=== PATIENT | female | born 1990 | race Two or more races ===

== ENCOUNTER 2024-04-28 14:00 | Outpatient (RCR) | payer MEDICAID, SELFPAY ==
--- NOTE | 2024-04-15 13:37 | PTNOTE_ITS ---
PT OP Initial Eval Patient Information Outpatient Physical Therapy Treatment Date: 04/15/24 Visit Reasons: Low back/Pain in left leg Medical Diagnosis: Back Pain; Left LE Pain Treatment Dx #1: Back Pain Start of Care: 04/15/24 Smoking Status Smoking Status: Never smoker Initial Assessment Subjective: Pt is a 33 y/o female reports of back and left LE pain ~ 3 years ago. According to patient she has a few slipped disc. Pt has limitation with sitting, standing, chores, lifting, self care, cooking, cleaning, and performing recreational activities. Objective: L/S AROM: all motions are WFL Hip PROM: all motions are WFL Hip MMTs: grossly 3/5 Special Test (+) SLR Assessment: Pt demonstrate back pain with mobility deficits leading to difficulty with ADLs. Pt will attempt physical therapy if pain persist Pt will be refer back to provider for further consultation. Short Term and Technical System Analyst Goals 1) Increase L/S AROM WFL in 6 wks to be able to perform chores 2) Decrease back pain to 2/10 in 6 wks to be able to sit and stand more than 30 mins 3) Increase core strength WFL in 6 wks to be able to perform recreational activities 4) Increase hip MMTs grossly to 4-/5 in 6 wks to be able to walk more than 30 mins 5) Indep with HEP Treatment Plan 1) Manual Therapy 2) Therapeutic Activities 3) Therapeutic Exercises 4) Modalities (ice, heat, traction) Frequency and Duration: 2 x wk for 6 wks Certification Dates: 04/15/24 to 07/16/24 Procedure Charges OP PT Eval Mod Complex 30 minutes: Yes
--- NOTE | 2024-04-18 09:04 | PT.ODAYNRPT ---
PT Outpatient Daily Note OP Daily Note Outpatient Physical Therapy Treatment Date: 04/18/24 Visit Reasons: Low back/Pain in left leg Subjective: Pt's back is about the same. Objective: Please see flow chart for list of ther ex performed Assessment: tolerate exercises with minimal pain Plan: Continue with PT Length of Time (minutes) of Treatment: 30 Minutes Procedure Charges Therapeutic Exercise 30 minutes: Yes
--- NOTE | 2024-04-25 09:05 | PT.ODAYNRPT ---
PT Outpatient Daily Note OP Daily Note Outpatient Physical Therapy Treatment Date: 04/25/24 Visit Reasons: Low back/Pain in left leg Subjective: Pt reports LBP is 8/10 today, felt increase pain and soreness post last PT session. Objective: Please see flow sheet for ther ex list. Assessment: Pt presents in clinic with c/o 8/10 pain, regressed interventions to accommodate pain. Plan: Assess response to treatment. Length of Time (minutes) of Treatment: 30 Minutes Procedure Charges Therapeutic Exercise 30 minutes: Yes
--- NOTE | 2024-04-28 14:49 | PT.ODAYNRPT ---
PT Outpatient Daily Note OP Daily Note Outpatient Physical Therapy Treatment Date: 04/28/24 Visit Reasons: Low back/Pain in left leg Subjective: Pt's back feels about the same. Pt mention she has her MRI results in the car. Objective: Please see flow chart for list of ther ex performed Assessment: attempted to review MRI results with patient, however, unable due to patient's inability to locate the result. Pre-heat helped patient tolerate supine exercises Plan: Continue with PT Length of Time (minutes) of Treatment: 30 Minutes Procedure Charges Therapeutic Exercise 30 minutes: Yes
== END 2024-05-01 23:59 | disposition home or self-care (01) ==
LOC: CPTX 14:00
PROVIDERS: PCP Nurse Practitioner Family; Referring Provider Nurse Practitioner Family; Visit Provider Nurse Practitioner Family
DX: M54.9 Dorsalgia, unspecified (principal); M79.605 Pain in left leg
CPT/HCPCS: 97110; 97162

== ENCOUNTER 2024-05-23 09:00 | Outpatient (RCR) | payer OTHER, SELFPAY ==
--- NOTE | 2024-05-05 10:26 | PT.ODAYNRPT ---
PT Outpatient Daily Note OP Daily Note Outpatient Physical Therapy Treatment Date: 05/05/24 Visit Reasons: Low back pain/hip pain Subjective: Pt still unable to locate MRI results. Pt will have facility fax to PT clinic. Pt's back about the same. Objective: Please see flow chart for list of ther ex performed Assessment: added light core strengthening exercises with good tolerance Plan: Continue with PT Length of Time (minutes) of Treatment: 30 Minutes Procedure Charges Therapeutic Exercise 30 minutes: Yes
--- NOTE | 2024-05-09 10:26 | PT.ODAYNRPT ---
PT Outpatient Daily Note OP Daily Note Outpatient Physical Therapy Treatment Date: 05/09/24 Visit Reasons: Low back pain/hip pain Subjective: Pt still cant fing her MRI results. Pt mention physical therapy is not helping and will talk with PCP about continuation. Objective: Please see flow chart for list of ther ex performed Assessment: patient encourage to return back to PCP for further consultation prior to stopping physical therapy since intervention is not helping pain. Pt gave verbal consent and agreement. Plan: Continue with PT Length of Time (minutes) of Treatment: 30 Minutes Procedure Charges Therapeutic Exercise 30 minutes: Yes
--- NOTE | 2024-05-16 09:16 | PT.ODAYNRPT ---
PT Outpatient Daily Note OP Daily Note Outpatient Physical Therapy Treatment Date: 05/16/24 Visit Reasons: Low back pain/hip pain Subjective: Pt reports today is a good day, back pain is mild. Pt shared that she has good and bad days, receives injections every 6 months for pain management. Objective: Please see flow sheet for ther ex list. Assessment: Pt ambulates with decrease arm swing. Pt completed interventions with no pain. Plan: Continue with POC. Length of Time (minutes) of Treatment: 30 Minutes Procedure Charges Therapeutic Exercise 30 minutes: Yes
--- NOTE | 2024-05-23 09:34 | PT.ODAYNRPT ---
PT Outpatient Daily Note OP Daily Note Outpatient Physical Therapy Treatment Date: 05/23/24 Visit Reasons: Low back pain/hip pain Subjective: Pt's back is the same and continues to hurt. Pt has a follow up appt with doctor today but does not want to be release from physical therapy despite therapy not helping. Objective: Please see floe chart for list of ther ex performed Assessment: no change in pain; heat helped patient tolerate supine exercises Plan: Continue with PT Length of Time (minutes) of Treatment: 30 Minutes Procedure Charges Therapeutic Exercise 30 minutes: Yes
== END 2024-05-31 23:59 | disposition home or self-care (01) ==
LOC: CPTX 09:00
PROVIDERS: PCP Nurse Practitioner Family; Referring Provider Nurse Practitioner Family; Visit Provider Nurse Practitioner Family
DX: M54.9 Dorsalgia, unspecified (principal); M79.605 Pain in left leg
CPT/HCPCS: 97110

== ENCOUNTER 2024-06-09 09:10 | Outpatient (RCR) | payer MEDICAID, SELFPAY ==
--- NOTE | 2024-06-09 09:31 | PT.ODAYNRPT ---
PT Outpatient Daily Note OP Daily Note Outpatient Physical Therapy Treatment Date: 06/09/24 Visit Reasons: low back pain/hip pain Subjective: Pt received shots in her back last week which seems to help the pain. Pt is doing okay today. Pt wants to finish all of her physical therapy session for the back. Objective: Please see flow chart for list of ther ex performed Assessment: added more standing exercises with good tolerance. Decrease left LE pain reported post PT session Plan: Continue with PT Length of Time (minutes) of Treatment: 30 Minutes Procedure Charges Therapeutic Exercise 30 minutes: Yes
== END 2024-07-01 23:59 | disposition home or self-care (01) ==
LOC: CPTX 09:10
PROVIDERS: PCP Nurse Practitioner Family; Referring Provider Nurse Practitioner Family; Visit Provider Nurse Practitioner Family
DX: M54.50 Low back pain, unspecified (principal); M79.605 Pain in left leg
CPT/HCPCS: 97110

== ENCOUNTER → 2024-08-20 | Outpatient (CLI) | payer MEDICAID, SELFPAY ==
--- NOTE | 2024-08-20 10:20 | XR_ITS ---
Examination:Right hip AP, lateral, AP pelvis 3 views Technique: Hip AP lateral, AP pelvis, 3 views Exam date and time:August 20, 2024 1044 hours. Indications: Patient onset right hip pain 3 weeks ago FINDINGS: Mild osteopenia Mild narrowing hip joints No right or left hip fracture or hip dislocation Greater trochanteric bursitis left hip IMPRESSION: Mild narrowing hip joints
== END | disposition home or self-care (01) ==
LOC: CDIM 10:00
PROVIDERS: PCP Nurse Practitioner Family; Referring Provider Nurse Practitioner Family; Visit Provider Nurse Practitioner Family
DX: M25.851 Other specified joint disorders, right hip (principal)
CPT/HCPCS: 73502

== ENCOUNTER → 2024-09-11 | Outpatient (CLI) | payer MEDICAID, SELFPAY ==
--- NOTE | 2024-09-11 08:22 | XR_ITS ---
Examination:Left hip AP, lateral, AP pelvis 3 views Technique: Hip AP lateral, AP pelvis, 3 views Exam date and time:September 11, 2024, 0730 hrs. Indications: Left hip pain beginning one month ago Findings: Mild narrowing hip joints. Greater trochanteric bursitis left hip No hip fracture or dislocation Impression: Mild narrowing hip joints Greater trochanteric bursitis left hip.
== END | disposition home or self-care (01) ==
PROVIDERS: PCP Nurse Practitioner Family; Referring Provider Nurse Practitioner Family; Visit Provider Nurse Practitioner Family
DX: M70.62 Trochanteric bursitis, left hip (principal); M25.852 Other specified joint disorders, left hip
CPT/HCPCS: 73502

== ENCOUNTER 2024-10-18 12:07 | Emergency (ER) | payer MEDICAID, SELFPAY ==
--- NOTE | 2024-10-18 12:15 | XR_ITS ---
Examination: Abdomen AP single view Technique: AP portable supine abdomen, single view Exam date and time: October 18, 2024 1338 hrs. Indications: Gastric surgery 2 weeks ago with nausea and vomiting today Findings: Nonobstructive bowel gas pattern No free air Surgical clips upper right abdomen Impression: Nonobstructive bowel gas pattern
[2024-10-18 12:16] VITALS: BP 110/83; PULSE 97; RESP 18; TEMP 37; O2SAT 98; BMI 35.5
--- NOTE | 2024-10-18 12:16 | XR_ITS ---
Examination: PA chest single view Technique: Upright PA chest single view Exam date and time: October 18, 2024 at 1346 hrs. Indications: Vomiting today. Findings: Normal heart size No aspiration pneumonia. Osseous structures are intact Impression: No aspiration pneumonia
--- NOTE | 2024-10-18 12:19 | EDNOTE_ITS ---
ED General RME/HPI General Chief complaint: Nausea/Vomiting/Diarrhea Stated complaint: N/V Time Seen by Provider: 10/18/24 12:10 Arrival date/time: 10/18/24 12:07 RME / HPI RME / HPI narrative: 34-year-old female patient with a recent history of bariatric surgery, gastric sleeve, 2 weeks ago, came in for evaluation regarding nausea and vomiting. Patient has been having nausea and vomiting, for the last few days, cannot take anything down, associated with loose stools. Patient also complained of epigastric pain, and left subcostal pain. Describes dull ache, severity mild. Denies any fever denies any other complaints no medications taken prior to arrival. Related Data Previous Rx's ?Medication ?Instructions ?Recorded metoclopramide HCl 10 mg tablet 10 mg PO .BID prn PRN nausea and 10/18/24 (Reglan) vomiting #20 tabs pantoprazole 40 mg tablet,delayed 40 mg PO QDAY #20 ta bs 10/18/24 release (Protonix) Allergies Allergy/AdvReac Type Severity Reaction Status Date / Time peanut Allergy Verified 10/18/24 13:22 Review of Systems Review of Systems Narrative Review of Systems: Review of system reviewed and within normal limits except mentioned in HPI ED Exam Narrative Physical exam: VITAL SIGNS: Reviewed. GENERAL APPEARANCE: Alert and interactive, follows commands, no acute distress, HEAD AND FACE: Non-traumatic. ENT: PERRL, pink conjunctivitis, eyelid no trauma, Mucous membrane moist. NECK: Supple, nontender, no nuchal rigidity. CHEST: No tenderness, no crepitus, no paradoxical movement, no retractions. LUNGS: Clear, well ventilated, symmetric, no rales, no wheezing, no ronchi, no stridor, good breath sounds bilaterally. HEART: Regular rate, regular rhythm, no murmur, no gallops. ABDOMEN: Soft, positive bowel sounds, nondistended, no guarding, no rebound, no masses, status post multiple laparoscopic surgeries she site, intact, no drainage no redness, slight tenderness on the epigastric area, tenderness slight, on the left subcostal area RECTAL: Deferred. GENITAL: Deferred. NEUROLOGICAL: Gross motor function intact sensory function intact, Appropriate for age. MUSCULOSKELETAL: low back nontender, full range of motion. EXTREMITIES: Nontender, full range of motion. SKIN: Color pink, dry, no rash, no lacerations, no abrasions, no contusions. LYMPHATICS: Deferred. Course Quality Measures none Orders Category Date Time Status KUB [XR abdomen 1V] Stat Exams 10/18/24 12:15 Completed XR chest 1V Stat Exams 10/18/24 12:16 Completed CBC Stat Lab 10/18/24 12:40 Completed Comprehensive Metabolic Panel Stat Lab 10/18/24 12:40 Completed Lipase Stat Lab 10/18/24 12:40 Completed Partial Thromboplastin Time Stat Lab 10/18/24 12:40 Completed Urinalysis, C/S if Indicated Stat Lab 10/18/24 12:35 Completed Famotidine Inj [Pepcid Inj] Med 10/18/24 12:15 Discontinued 20 mg IVP X1 ONE KCL 10% Liq UDC 15 ML Med 10/18/24 16:38 Once 40 meq GT X1 ONE Metoclopramide Inj [Reglan Inj] Med 10/18/24 13:33 Discontinued 10 mg IVP X1 ONE Ondansetron Inj [Zofran Inj] Med 10/18/24 12:15 Discontinued 4 mg IV X1 ONE Ringers Lactated 1000 ml [Lactated Ringers] 1,000 ml Med 10/18/24 12:18 Discontinued IV 999 mls/hr Vital Signs Vital signs: Vital Signs Temperature 98.6 F 10/18/24 12:16 Pulse Rate 97 10/18/24 12:16 Respiratory Rate 18 10/18/24 12:16 Blood Pressure 110/83 10/18/24 12:16 Pulse Oximetry (%) 98 10/18/24 12:16 Oxygen Delivery Method Room Air 10/18/24 12:16 Discharge Plan Plan Patient Disposition: HOME (Self Care) Disposition Comment: Stable Prescriptions/Referrals Prescriptions/Med Rec: New metoclopramide HCl [Reglan] 10 mg tablet 10 mg PO .BID prn PRN (Reason: nausea and vomiting) Qty: 20 0RF pantoprazole [Protonix] 40 mg tablet,delayed release (DR/EC) 40 mg PO QDAY Qty: 20 0RF Referrals: Celestina Jarrett, [employer] [Primary Care Provider] - In 1 week Problem List Clinical Impression: Dehydration, Nausea & vomiting Patient/Caregiver Discharge Instructions Discharge Activity: activity as tolerated Education Materials: ED Dehydration (Adult) Additional Instructions: Thank you for the opportunity for serving you today. You are stable for dischar ged . You are advised to: Follow-up with your PCP in 1 to 2 days Return to ED for worsening of symptoms Increase oral fluids Print Language: Cam[place]onian Stand Alone Forms: Nancy Award Info., Patient Portal Info Letter MDM Patient Acuity Narrative: 34-year-old female patient with a recent history of bariatric surgery, gastric sleeve, 2 weeks ago, came in for evaluation regarding nausea and vomiting. Patient has been having nausea and vomiting, for the last few days, cannot take anything down, associated with loose stools. Patient also complained of epigastric pain, and left subcostal pain. Describes dull ache, severity mild. Denies any fever denies any other complaints no medications taken prior to arrival. Patient's workup is significant for slight leukocytosis of 14.0, urinalysis contaminated. Chest x-ray came back unremarkable x-ray of the abdomen came back unremarkable. Patient received IV fluid hydration, Pepcid, Reglan and Zofran with significant problems symptoms. Patient stable for discharge home. Medication Administration(s) Medication Administration History Potassium Chloride (Potassium Chloride 10% 20 Meq/15 Ml Udc) 40 meq GT X1 ONE Stop: 10/18/24 16:39 Discontinued Medications Famotidine (Famotidine Inj 10 Mg/Ml Vial 2 Ml) 20 mg IVP X1 ONE Stop: 10/18/24 12:16 Last Admin: 10/18/24 13:38 Dose: 20 mg Documented By: CHACHA Lactated Ringer's (Lactated Ringers) 1,000 mls @ 999 mls/hr IV .Q1H1M ONE Stop: 10/18/24 13:18 Last Admin: 10/18/24 13:31 Dose: 999 mls/hr Documented By: Metoclopramide HCl (Metoclopramide Inj 5 Mg/Ml Vial 2 Ml) 10 mg IVP X1 ONE; Protocol Stop: 10/18/24 13:34 Last Admin: 10/18/24 13:38 Dose: 10 mg Documented By: CHACHA Ondansetron HCl (Ondansetron Inj 2 Mg/Ml Inj 2 Ml) 4 mg IV X1 ONE; Protocol Stop: 10/18/24 12:16 Last Admin: 10/18/24 13:33 Dose: Not Given Documented By: Non-Admin Reason: Other, see note Comments: not given, patient had with EMS and at home. Reglan ordered Diagnosis Differential Diagnosis ED Complaint MDM: Dehydration, nausea vomiting, status post recent gastric sleeve surgery Diagnoses ruled out: Dehydration, nausea vomiting, status post gastric sleeve surgery
[2024-10-18 12:45] LABS: Collection Type, Urine Clean Catch
[2024-10-18 12:49] LABS: Basophils # (Auto) 0.1 Thou/mm3 (0.0-0.2); Basophils % (Auto) 1 % (0-2.5); Eosinophils # (Auto) 0.3 Thou/mm3 (0.0-0.5); Eosinophils % (Auto) 2 % (0-10); Hemoglobin 14.6 g/dL (12.0-16.0); Immature Granulocytes % (Auto) 0 % (0-0); Immature Granulocytes Auto 0.04 Thou/mm3 (0.00-0.00); Lymphocytes # (Auto) 2.6 Thou/mm3 (1.0-4.8); Lymphocytes % (Auto) 19 % (10-50); Mean Corpuscular HGB Conc 32.4 g/dl (31.0-37.0); Mean Corpuscular Hemoglobin 25.3 pg (25.0-35.0); Mean Corpuscular Volume 78 fL (80-100); Monocytes # (Auto) 1.2 Thou/mm3 (0.0-0.8); Monocytes % (Auto) 8 % (0-12); Neutrophils # (Auto) 9.8 Thou/mm3 (1.8-7.7); Neutrophils % (Auto) 70 % (37-80); Nucleated Red Blood Cell % 0 /100 WBC (0); Platelet Count 355 Thou/mm3 (140-440); RDW Standard Deviation 41.2 fL (36.4-46.3); Red Blood Count 5.77 Miln/mm3 (4.00-5.20)
[2024-10-18 12:58] LABS: Bacteria,Urine 1+; Bilirubin,Urine 1+ (Negative); Blood,Urine 3+ (Negative); Clarity,Urine Turbid (Clear/Hazy); Color,Urine Drk-Yellow (Lt Yel-Yel); Culture Indicated,Urine Contaminated; Glucose, Urine Negative (Negative); Ketones,Urine 4+ (Negative); Leukocyte Esterase,Urine Positive (Negative); Nitrite,Urine Negative (Negative); PH,Urine 6.5 (5.0-7.0); Protein,Urine 3+ (Neg - Trace); RBC,Urine 6 /hpf (0-3); Specific Gravity,Urine 1.033 (1.001-1.035); Squamous Epithelial Cell,Urine 23 /hpf (0-5); WBC,Urine 24 /hpf (0-5)
[2024-10-18 13:02] LABS: Partial Thromboplastin Time 28.9 Seconds (22.0-36.0)
[2024-10-18 13:08] LABS: Alanine Aminotransferase 43 U/L (10-49); Albumin, Serum 4.6 gm/dL (3.5-5.0); Albumin/Globulin Ratio 1.4 (1.2-2.2); Alkaline Phosphatase 63 U/L (46-116); Anion Gap 13 (7-16); Aspartate Amino Transferase 36 U/L (0-34); BUN/Creatinine Ratio 10 Ratio (12-20); Blood Urea Nitrogen 8 mg/dL (9-23); Calcium 9.5 mg/dL (8.3-10.6); Calcium (Corrected) 9.5 mg/dL (8.5-10.1); Carbon Dioxide 22.5 mMol/L (20.0-31.0); Chloride 106 mMol/L (98-107); Creatinine (Component) 0.8 mg/dL (0.6-1.3); Estimated Creatinine Clearance 111.1 mL/min (>60); Globulin 3.3 gm/dL (2.3-3.5); Glucose 88 mg/dL (74-106); Lipase 186 U/L (12-53); Osmolality,Calculated 278 (275-295); Potassium 3.1 mMol/L (3.4-5.1); Sodium 141 mMol/L (136-145); Total Protein 7.9 gm/dL (5.7-8.2); eGFR > 60 See Note
[2024-10-18 13:13] VITALS: PULSE 94; RESP 20; O2SAT 98
[2024-10-18] MEDS: RINGERS LACTATED 1000 ML 1,000 ML 999 ML IV (13:31)
[2024-10-18] MEDS: METOCLOPRAMIDE INJ 5 MG/ML VIAL 2 ML 10 MG IVP (13:38)
[2024-10-18] MEDS: FAMOTIDINE INJ 10 MG/ML VIAL 2 ML 20 MG IVP (13:38)
[2024-10-18 15:13] VITALS: BP 112/69; PULSE 81; RESP 18; TEMP 36.3; O2SAT 97
[2024-10-18 17:08] VITALS: BP 127/79; PULSE 59; RESP 18; TEMP 36.6; O2SAT 98
== END 2024-10-18 17:21 | disposition home or self-care (01) ==
PROVIDERS: Nurse Practitioner Family; Emergency Provider Emergency Medicine; PCP Nurse Practitioner Family
DX: E86.0 Dehydration (principal); R11.2 Nausea with vomiting, unspecified
CPT/HCPCS: 36415; 71045; 74018; 80053; 81001; 83690; 85025; 85730; 96374; 96375; 99284; J2765; J3490; J7120

== ENCOUNTER 2024-10-28 13:35 | Emergency (ER) | payer MEDICAID, SELFPAY ==
[2024-10-28 13:36] VITALS: BMI 34.3
[2024-10-28 13:55] VITALS: BP 113/84; PULSE 97; RESP 18; TEMP 36.6; O2SAT 97
--- NOTE | 2024-10-28 13:58 | PD.EDRME ---
Rapid Medical Screening Exam RME Arrival date/time: 10/28/24 13:35 34-year-old female presents to the Emergency Department with a complaint of nausea vomiting patient reports a gastric sleeve 10/04 Chief Complaint: Abdominal Pain Vital signs: Vital Signs Temperature 98 F 10/28/24 13:55 Pulse Rate 97 10/28/24 13:55 Respiratory Rate 18 10/28/24 13:55 Blood Pressure 113/84 10/28/24 13:55 Pulse Oximetry (%) 97 10/28/24 13:55 Oxygen Delivery Method Room Air 10/28/24 13:55
[2024-10-28] MEDS: METOCLOPRAMIDE INJ 5 MG/ML VIAL 2 ML 10 MG IM (14:05)
[2024-10-28 14:51] LABS: Basophils # (Auto) 0.1 Thou/mm3 (0.0-0.2); Basophils % (Auto) 1 % (0-2.5); Eosinophils # (Auto) 0.3 Thou/mm3 (0.0-0.5); Eosinophils % (Auto) 3 % (0-10); Hematocrit 47.4 % (36.0-46.0); Hemoglobin 16.1 g/dL (12.0-16.0); Immature Granulocytes % (Auto) 1 % (0-0); Immature Granulocytes Auto 0.06 Thou/mm3 (0.00-0.00); Lymphocytes # (Auto) 3.5 Thou/mm3 (1.0-4.8); Lymphocytes % (Auto) 35 % (10-50); Mean Corpuscular Hemoglobin 26.3 pg (25.0-35.0); Mean Corpuscular Volume 77 fL (80-100); Monocytes # (Auto) 1.9 Thou/mm3 (0.0-0.8); Monocytes % (Auto) 19 % (0-12); Neutrophils % (Auto) 41 % (37-80); Nucleated Red Blood Cell % 0 /100 WBC (0); Platelet Count 410 Thou/mm3 (140-440); Red Blood Count 6.13 Miln/mm3 (4.00-5.20); White Blood Count 9.8 Thou/mm3 (3.6-11.0)
[2024-10-28 15:01] LABS: Alanine Aminotransferase 35 U/L (10-49); Albumin, Serum 4.3 gm/dL (3.5-5.0); Albumin/Globulin Ratio 1.4 (1.2-2.2); Alkaline Phosphatase 62 U/L (46-116); Anion Gap 15 (7-16); Aspartate Amino Transferase 30 U/L (0-34); BUN/Creatinine Ratio 9 Ratio (12-20); Bilirubin,Total 0.7 mg/dL (0.3-1.2); Blood Urea Nitrogen 8 mg/dL (9-23); Calcium 9.4 mg/dL (8.3-10.6); Calcium (Corrected) 9.4 mg/dL (8.5-10.1); Carbon Dioxide 24.1 mMol/L (20.0-31.0); Chloride 103 mMol/L (98-107); Creatinine (Component) 0.9 mg/dL (0.6-1.3); Globulin 3.1 gm/dL (2.3-3.5); Glucose 100 mg/dL (74-106); Lipase 138 U/L (12-53); Magnesium 1.9 mg/dL (1.6-2.6); Osmolality,Calculated 281 (275-295); Sodium 142 mMol/L (136-145); Total Protein 7.4 gm/dL (5.7-8.2); eGFR > 60 See Note
[2024-10-28 15:06] LABS: Potassium 2.6 mMol/L (3.4-5.1)
[2024-10-28 17:23] VITALS: BP 116/81; PULSE 84; RESP 18; TEMP 36.6; O2SAT 98
[2024-10-28 17:31] LABS: Collection Type, Urine Clean Catch
[2024-10-28 17:44] LABS: HCG Qualitative,Urine Negative
[2024-10-28 17:55] LABS: Bacteria,Urine Rare; Bilirubin,Urine 1+ (Negative); Blood,Urine Negative (Negative); Clarity,Urine Turbid (Clear/Hazy); Color,Urine Yellow (Lt Yel-Yel); Culture Indicated,Urine Not Indicated; Glucose, Urine Negative (Negative); Hyaline Casts,Urine < 1 /hpf (0-1); Ketones,Urine 4+ (Negative); Leukocyte Esterase,Urine Negative (Negative); Nitrite,Urine Negative (Negative); PH,Urine 6.5 (5.0-7.0); Protein,Urine 2+ (Neg - Trace); RBC,Urine 7 /hpf (0-3); Specific Gravity,Urine 1.032 (1.001-1.035); Squamous Epithelial Cell,Urine 10 /hpf (0-5); WBC,Urine 9 /hpf (0-5)
[2024-10-28 19:15] VITALS: BP 118/83; PULSE 85; RESP 16; TEMP 36.8; O2SAT 98
--- NOTE | 2024-10-28 19:50 | PD.EDADDENDU ---
Attestation <Renetta Luo MD - Last Filed: 10/28/24 19:51> MD Sanders I was asked to go see this patient in the waiting room. They put her in the conference room and no one went to go see her the patient was not there. The billing and quality technician went to find the patient and they had said that she left without being seen. I did not do a history and physical exam on this patient because she left without being seen. <Key Lozada - Last Filed: 10/28/24 19:53> Attestation I was asked to go see this patient in the waiting room. They put her in the conference room and no one went to go see her the patient was not there. The billing and quality technician went to find the patient and they had said that she left without being seen. I did not do a history and physical exam on this patient because she left without being seen. 1951: i will call patient at home to discuss potassium level. Patient can choose to return to ED or not.
--- NOTE | 2024-10-28 19:51 | PC.NURSE ---
no answer from pt when being called back to see ER
--- NOTE | 2024-10-28 20:30 | PC.NURSE ---
PATIENT WAS CALLED THREE TIMES NO ANSWER.
== END 2024-10-28 20:31 | disposition left against medical advice (07) ==
PROVIDERS: Nurse Practitioner Primary Care; Emergency Provider Emergency Medicine; PCP Nurse Practitioner Family
DX: R11.2 Nausea with vomiting, unspecified (principal); R10.9 Unspecified abdominal pain; Z53.29 Procedure and treatment not carried out because of patient's decision for other reasons; Z98.84 Bariatric surgery status
CPT/HCPCS: 36415; 80053; 81001; 81025; 83690; 83735; 85025; 96372; 99281; J2765

== ENCOUNTER → 2024-11-20 | Outpatient (CLI) | payer MEDICAID, SELFPAY ==
--- NOTE | 2024-11-20 08:45 | XR_ITS ---
Examination:Left hip AP, lateral, AP pelvis 3 views Technique: Hip AP lateral, AP pelvis, 3 views Exam date and time:November 20, 2024 0850 hours INDICATIONS: Left hip pain beginning 3 months ago. FINDINGS: Mild narrowing hip joints Greater trochanteric bursitis left hip No hip or pelvic fracture IMPRESSION: Mild narrowing hip joints Greater trochanteric bursitis left hip.
== END | disposition home or self-care (01) ==
LOC: CDIM 08:27
PROVIDERS: PCP Nurse Practitioner Family; Referring Provider Nurse Practitioner Family; Visit Provider Nurse Practitioner Family
DX: M70.62 Trochanteric bursitis, left hip (principal); M25.852 Other specified joint disorders, left hip
CPT/HCPCS: 73502

== ENCOUNTER → 2024-12-31 | Outpatient (CLI) | payer MEDICAID, SELFPAY ==
--- NOTE | 2024-12-31 13:00 | XR_ITS ---
Examination: Steroid injection greater trochanteric bursa left hip with imaging guidance Fluoroscopy AP left hip single view INDICATIONS: Diagnosis greater trochanteric bursitis left hip, left hip pain 3 months. Exam date and time: December 31, 2024 1306 hours Informed consent provided. Technique: A timeout was completed verifying correct patient, procedure, site, positioning. The patient was placed in supine position appropriate for the steroid injection The patient's site was prepped and draped in sterile fashion 5 cc 1% lidocaine administered locally for anesthesia. Sterile drape applied, maximum barrier sterile technique. Utilizing fluoroscopic guidance, 23-gauge needle placed in the greater trochanteric bursa left hip 1 cc Kenalog 40 in 5 cc 0.25% Marcaine introduced into the greater trochanteric bursa left hip The patient was in satisfactory and stable condition on completion of the procedure Attending radiologist was present for the entire procedure Estimated blood loss 0 cc. Impression: Successful steroid injection greater trochanteric bursa left hip with imaging guidance Fluoroscopy 0.1 minute radiation dose 1.08 milligray 1 spot fluoroscopic AP left hip film .
== END | disposition home or self-care (01) ==
PROVIDERS: PCP Nurse Practitioner Family; Referring Provider Nurse Practitioner Family; Visit Provider Nurse Practitioner Family
DX: M25.552 Pain in left hip (principal)
CPT/HCPCS: 20610; 77002